=== PATIENT | male | born 1955 | race Caucasian/White ===

== ENCOUNTER → 2016-10-01 | Outpatient (CLI) | payer OTHER ==
[~2016-10-01] MED LIST: GADOBUTROL 10 ML VIAL IVP ONE
== END ==
LOC: FIMAGING 07:06
PROVIDERS: ATTEND Internal Medicine Hematology & Oncology
DX: Z08 Encounter for follow-up examination after completed treatment for malignant neoplasm (principal)
CPT/HCPCS: A9585

== ENCOUNTER 2017-03-10 07:40 | Emergency (ER) | payer OTHER ==
[2017-03-10 07:48] VITALS: O2SAT 96
--- NOTE | 2017-03-10 08:15 | EDPHY ---
H & P Time Seen by Provider: 03/10/17 07:49 HPI/ROS: CHIEF COMPLAINT: Left foot injury HISTORY OF PRESENT ILLNESS: Patient has been having pain in his left foot for 2 or 3 weeks which is worse with walking and so he has been on the exercise bike instead. Today he was walking on the treadmill at 2 miles an hour when twisted his foot and felt a pop and became suddenly more painful. He can walk on it if he uses his heel but walking on the forefoot is painful. REVIEW OF SYSTEMS: No leg or knee or ankle injury. No laceration. PAST MEDICAL HISTORY: Includes Parkinson's, melanoma, cholecystectomy. Social history: here with spouse General Appearance: Alert and conversant, cooperative. Pain minimal at rest. Nontender in the calf or lateral or medial malleolus. Achilles is nontender. Skin normal over the foot. Tender primarily over the distal part of the arch and the instep on the distal 3rd of the forefoot. Toes nontender and 5th metatarsal nontender. Normal dorsalis pedis pulse and motor and sensory. Emergency Department course/MDM: No evidence for Achilles rupture or ankle fracture. Plan for foot x-ray, outpatient orthopedic referral. 829: Results explain, patient has an orthopedic boot, warned he needs mandatory specialist follow-up for evaluation; the now tells me he has been having intermittent pain and swelling in that foot for over a year. Smoking Status: Never smoked Constitutional: Initial Vital Signs Temperature (C) 36.6 C 03/10/17 07:45 Heart Rate 71 03/10/17 07:45 Respiratory Rate 16 03/10/17 07:45 Blood Pressure 118/85 H 03/10/17 07:45 O2 Sat (%) 96 03/10/17 07:45 O2 Delivery Mode Room Air Allergies/Adverse Reactions: No Known Allergies Allergy (Verified 03/10/17 07:43) Home Medications: Medication Instructions Recorded Cyclobenzaprine HCl [Amrix] 15 mg PO HS 09/04/13 Ferrous Gluconate [Ferrous 325 mg PO BIDMEAL 09/04/13 Gluconate 325 MG] Fexofenadine HCl [Nilda Allergy] 180 mg PO DAILY 09/04/13 LORazepam [Ativan (*)] 1 mg PO HS 09/04/13 Lisinopril/Hydrochlorothiazide 1 each PO DAILY 09/04/13 [Lisinopril-Hctz 10-12.5 mg Tab] Multivitamins [Multivitamin (*)] 1 each PO DAILY 09/04/13 Propafenone HCl Sr [Rythmol Sr 225 mg PO Q12 09/04/13 225mg (*)] Cholecalciferol (Vitamin D3) 2,000 unit PO DAILY 10/09/14 [Vitamin D3] Herbals/Supplements -Info Only 1 ea PO DAILY 10/09/14 [place]-3 Fatty Acids [Fish Oil 1000 1,000 mg PO DAILY 10/09/14 mg (*)] rOPINIRole HCL [Requip XL 6mg] 6 mg PO HS 10/17/14 Stalevo 100 Tablet 07/31/15 MDM/Departure - MDM Imaging Results: Imaging Impressions Foot X-Ray 03/10/17 07:55 Impression: Nothing acute identified. Negative lateral foot. - Depart Disposition: Home, Routine, Self-Care Clinical Impression: Sprain of foot, left Qualifiers: Encounter type: initial encounter Qualified Code(s): S93.602A - Unspecified sprain of left foot, initial encounter Condition: Good Instructions: Foot Sprain (ED) Additional Instructions: You likely have a sprain acutely, although a stress fracture in your foot cannot be completely excluded. Please follow-up with orthopedic referral physician Dr. Whittaker or department administrator Dr. Hawkins within the 1-2 weeks for further evaluation. Activity as tolerated. Referrals: Richelle Fish MD [Primary Care Provider] - As per Instructions Neo Whittaker MD [Medical Doctor] - As per Instructions Pavel Hawkins DPM [Doctor of Podiatric Medicine] - As per Instructions
[2017-03-10 09:09] VITALS: BP 117/97; PULSE 67; RESP 18; TEMP 97.3
== END 2017-03-10 09:25 | disposition home or self-care (01) ==
DX: S93.602A Unspecified sprain of left foot, initial encounter (principal); X58.XXXA Exposure to other specified factors, initial encounter; Y99.8 Other external cause status; Y93.A1 Activity, exercise machines primarily for cardiorespiratory conditioning

== ENCOUNTER → 2017-09-14 | Outpatient (CLI) | payer OTHER | LOC: FIMAGING 15:48 | PROVIDERS: ATTEND Nurse Practitioner | DX: M51.37 Other intervertebral disc degeneration, lumbosacral region (principal); M51.36 Other intervertebral disc degeneration, lumbar region; M46.97 Unspecified inflammatory spondylopathy, lumbosacral region ==

== ENCOUNTER 2017-09-29 08:42 | Inpatient (IN) | payer OTHER ==
--- NOTE | 2017-09-29 06:39 | PDHPUP ---
History & Physical Update H&P update statement: This history and physical update is based on an assessment of the patient which was completed after admission or registration (within 24 hours), but prior to the surgery/procedure. H&P update: H&P reviewed & patient examined, no change in patient's condition since H&P completed
[2017-09-29] MEDS ORDERED: BUPIVACAINE 0.25% 30 ML SDV ONE (08:54)
[2017-09-29] MEDS ORDERED: THROMBIN (BOVINE) 20,000 UNIT VIAL TP ONE (08:54)
[2017-09-29] MEDS ORDERED: BACITRACIN 50,000 UNITS/10 ML SYR IRR ONE (08:55)
[2017-09-29] MEDS ORDERED: ACETAMINOPHEN 500 MG TAB PO ONE (08:55)
[2017-09-29] MEDS ORDERED: GABAPENTIN 300 MG CAP PO ONE (08:55)
[2017-09-29] MEDS ORDERED: ceFAZolin 2 GM/SWFI 2 GM/20 ML SYR IVP ONE (08:55)
[2017-09-29] MEDS ORDERED: CHLORHEXIDINE GLUC HIBICLENS 118 ML BTL TP ONE (08:55)
[2017-09-29] MEDS ORDERED: LR 1,000 ML IV ONE (08:56)
--- NOTE | 2017-09-29 09:42 | PDANEPAE ---
ANE History of Present Illness L4/5,L5/S1 TLIF for spinal stenosis ANE Past Medical History - Cardiovascular History Hx Hypertension: Yes Hx Arrhythmias: Yes Hx Chest Pain: No Hx Coronary Artery / Peripheral Vascular Disease: No Hx CHF / Valvular Disease: No Hx Palpitations: No Cardiovascular History Comment: ATRIAL FIBRILLATION. HHT - Pulmonary History Hx COPD: No Hx Asthma/Reactive Airway Disease: No Hx Recent Upper Respiratory Infection: Yes Hx Oxygen in Use at Home: Yes O2 in Use at Home (L/minute): 1L Hx Sleep Apnea: Yes Sleep Apnea Screening Result - Last Documented: Positive Pulmonary History Comment: DIEUDONNE no c-pap. EXERCISE INDUCED ASTHMA - Neurologic History Hx Cerebrovascular Accident: No Hx Seizures: No Hx Dementia: No Neurologic History Comment: PARKINSON DISEASE DX 2011 - Endocrine History Hx Diabetes: No Hypothyroid: No Hyperthyroid: No Obesity: mild - Renal History Hx Renal Disorders: Yes Renal History Comment: left Nephrectomy for renal mass - Liver History Hx Hepatic Disorders: No - Neurological & Psychiatric Hx Hx Neurological and Psychiatric Disorders: Yes Neurological / Psychiatric History Comment: ANXIETY RELATED TO PARKINSON - Cancer History Hx Cancer: Yes Cancer History Comment: OCULAR Melanoma - Congenital Disorder History Hx Congenital Disorders: Yes Congenital History Comment: congenital cataract and glaucoma L eye - GI History GERD: mild Hx Gastrointestinal Disorders: No Gastrointestinal History Comment: BOWELS SLOW NOT REGULAR - Other Health History Other Health History: ANEMIA due to HHT. nose bleeds - Chronic Pain History Chronic Pain: No - Surgical History Prior Surgeries: L nephrectomy. ENDOSCOPY WITH INJECTION 08/2013. NASAL RECONSTRUCTION YOUNG PROCEDURE 12/2012. LT EYE ENUCLEATION 08/2013. LT CATARACT 1994. LUMA 2008. T&A. NASAL ABLATIONS ANE Review of Systems Review of Systems: - Exercise capacity METS (RN): 4 METS ANE Patient History - Allergies Allergies/Adverse Reactions: No Known Allergies Allergy (Verified 03/10/17 07:43) - Home Medications Home medications: home medication list seen and reviewed Home Medications: Fexofenadine HCl [Nilda Allergy] 180 mg PO DAILY@72909/04/13 [Last Taken 07:30] Lisinopril/Hydrochlorothiazide [Lisinopril-Hctz 10-12.5 mg Tab] 1 each PO DAILY@ 72909/04/13 [Last Taken 09/28/17 07:30] Multivitamins [Multivitamin (*)] 1 each PO DAILY@72909/04/13 [Last Taken 09/22] Propafenone HCl Sr [Rythmol Sr 225mg (*)] 225 mg PO BID@729,222909/04/13 [ Last Taken 09/28/17 07:30] Cholecalciferol (Vitamin D3) [Vitamin D3] 2,000 unit PO DAILY@72910/09/14 [ Last Taken 10/12/14] Herbals/Supplements -Info Only 1 ea PO DAILY 10/09/14 [Last Taken 09/22/17] [place]-3 Fatty Acids [Fish Oil 1000 mg (*)] 1,000 mg PO DAILY@72910/09/14 [ Last Taken 09/22/17] Carbidopa/Levodopa/Entacapone [Stalevo 100 Tablet] 1 each PO QID@729,,, 222907/31/15 [Last Taken 09/29/17 07:30] Cyclobenzaprine [Flexeril 10 MG (*)] 10 mg PO TID@729,,09/17/17 [Last Taken 09/29/17 07:30] Ferrous Sulfate [Slow Fe 140 MG (*)] 140 mg PO DAILY@72909/17/17 [Last Taken 09/22/17] clonazePAM [Klonopin (*)] 0.5 mg PO DAILY@102909/17/17 [Last Taken 09/28/17 22: 30] rOPINIRole HCL [Requip Xl] 2 mg PO DAILY@72909/17/17 [Last Taken 09/28/17 22: 30] rOPINIRole HCL [Requip Xl] 8 mg PO DAILY@72909/17/17 [Last Taken 09/28/17 22: 30] - NPO status NPO Status: no food or drink >8 hours NPO Since - Liquids (Date): 09/28/17 NPO Since - Liquids (Time): 22:00 NPO Since - Solids (Date): 09/28/17 NPO Since - Solids (Time): 21:00 - Anes Hx Anes Hx: no prior problems - Smoking Hx Smoking Status: Never smoked Marijuana use: Yes - Family Anes Hx Family Anes Hx: none Family Hx Anesthesia Complications: NEG ANE Labs/Vital Signs - Vital Signs Blood Pressure: 140/97 Heart Rate: 69 Respiratory Rate: 18 O2 Sat (%): 93 Height: 187.33 cm Weight: 102.965 kg ANE Physical Exam - Airway Neck exam: decreased ROM Mallampati Score: Class 2 Mouth exam: normal dental/mouth exam - Pulmonary Pulmonary: no respiratory distress, no rales or rhonchi - Cardiovascular Cardiovascular: regular rate and rhythym, no murmur, rub, or gallop - ASA Status ASA Status: III ANE Anesthesia Plan Anesthesia Plan: general endotracheal anesthesia Lines/Monitors: arterial line Total IV Anesthesia: Yes
[2017-09-29] MEDS ORDERED: MIDAZOLAM 2 MG/2 ML VIAL IVP ONE (10:44)
[2017-09-29] MEDS ORDERED: METHOCARBAMOL 750 MG TAB PO PRN (10:45)
[2017-09-29] MEDS ORDERED: HYDROCODONE/APAP 5/325 TAB PO PRN ×2 (10:45→16:21)
[2017-09-29] MEDS ORDERED: NALOXONE HCL 0.4 MG/ML INJ IVP PRN ×2 (10:45→16:21)
[2017-09-29] MEDS ORDERED: BISACODYL 10 MG SUPP PR PRN (10:45)
[2017-09-29] MEDS ORDERED: diphenhydrAMINE 25 MG CAP PO PRN (10:45)
[2017-09-29] MEDS ORDERED: MIDAZOLAM 2 MG/2 ML VIAL ONE (10:45)
[2017-09-29] MEDS ORDERED: ONDANSETRON 4 MG/2 ML VIAL IVP PRN ×2 (10:45→16:21)
[2017-09-29] MEDS ORDERED: POLYETHYLENE GLYCOL 3350 17 GM PKT PO PRN (10:45)
[2017-09-29] MEDS ORDERED: MAGNESIUM HYDROXIDE 30 ML UDCUP PO PRN (10:45)
[2017-09-29] MEDS ORDERED: LACTULOSE 20 GM/30 ML UDCUP PO PRN (10:45)
[2017-09-29] MEDS ORDERED: HYDROmorphONE/DILAUDID 6 MG/30 ML PCA IV PRN (10:45)
[2017-09-29] MEDS ORDERED: ONDANSETRON DISINTEGRATING 4 MG TAB PO PRN (10:45)
[2017-09-29] MEDS ORDERED: NS W/ 20 KCl/L 1,000 ML IV SCH (10:45)
[2017-09-29] MEDS ORDERED: HYDROmorphONE/DILAUDID 1 MG/ML INJ IVP PRN ×2 (10:45→16:21)
[2017-09-29] MEDS ORDERED: PROPOFOL/EMULSION 500 MG/50 ML BOTTLE IV ONE ×3 (10:52→13:18)
[2017-09-29] MEDS ORDERED: fentaNYL 250 MCG/5 ML INJ ONE (10:52)
[2017-09-29] MEDS ORDERED: ROCURONIUM 50 MG/5 ML VIAL ONE (10:52)
[2017-09-29] MEDS ORDERED: GLYCOPYRROLATE 0.2 MG/1 ML VIAL ONE (10:52)
[2017-09-29] MEDS ORDERED: DEXAMETHASONE 4 MG/ML VIAL ONE ×2 (10:52)
[2017-09-29] MEDS ORDERED: LIDOCAINE 2% 5 ML SDV ONE (10:53)
[2017-09-29] MEDS ORDERED: ONDANSETRON 4 MG/2 ML VIAL ONE (10:53)
[2017-09-29] MEDS ORDERED: PETROLAT,WHT/MIN OIL/SOD CHL 3.5 GM OPHT.OINT ONE (11:00)
[2017-09-29] MEDS ORDERED: PHENYLEPHRINE HCL 100 MCG/ML SYR ONE (12:05)
[2017-09-29] MEDS ORDERED: fentaNYL 100 MCG/2 ML INJ ONE ×5 (12:18→16:26)
[2017-09-29] MEDS ORDERED: ceFAZolin 2 GM/DEXTROSE 100 ML IV SCH (14:00)
[2017-09-29] MEDS ORDERED: ceFAZolin 1 GM VIAL ONE (14:44)
[2017-09-29] MEDS ORDERED: PROPOFOL 200 MG/20 ML VIAL ONE ×2 (14:51)
[2017-09-29] MEDS ORDERED: fentaNYL 100 MCG/2 ML INJ IVP PRN (16:21)
[2017-09-29] MEDS ORDERED: DIAZEPAM 5 MG/ML 1 ML SYR IVP PRN (16:21)
--- NOTE | 2017-09-29 16:21 | SOAPPROG ---
SOAP Progress Note Assessment/Plan: Post Op Visit S: Awake and alert. Pt with expected lower back pain O: AFVSS/PERRLA/EOMI no droop CN 2-12 grossly intact +lt touch 5/5 BUE/BLE = except left DF at 4-/5, left EHL at 3+/5 +cms/nv intact x 4 A/P: 62 yo male that is s/p TLIF L4-S1 for BLE pain -orders in place -call with any questions or concerns -pt understands and agrees -pt seen by Dr Kapoor as well 09/29/17 16:18 Objective: Vital Signs Temp Pulse Resp BP Pulse Ox 36.4 C 69 18 140/97 H 93 09/29/17 09:02 09/29/17 10:37 09/29/17 10:37 09/29/17 10:37 09/29/17 10:37 ICD10 Worksheet Patient Problems: Problems Problem Status Onset Arthrodesis status Acute Lumbar radicular pain Acute Lumbar stenosis Acute Anemia Acute GI bleed Acute HHT (hereditary hemorrhagic telangiectasia) Acute Renal cyst, acquired, left Acute Renal mass Acute Renal oncocytoma of left kidney Acute - ICD10 Problem Qualifiers (1) Lumbar stenosis (2) Lumbar radicular pain (3) Arthrodesis status
--- NOTE | 2017-09-29 17:36 | GOP ---
[f rep st] OPERATIVE REPORT DATE OF OPERATION: 09/29/2017 SURGEON: Sandoval Kapoor MD NEUROSURGEON: Sandoval Kapoor MD. [facility] NURSE: Neo Munson PA-C. PREOPERATIVE DIAGNOSIS: Chronic left footdrop, bilateral lumbosacral radiculopathy, severe left fora giuseppe stenosis L5-S1, acute L4-5 disk herniation combined with right foraminal stenosis L4-5 lumbar d egenerative disk disease. POSTOPERATIVE DIAGNOSIS: Chronic left footdrop, bilateral lumbosacral radiculopathy, severe left for aminal stenosis L5-S1, acute L4-5 disk herniation combined with right foraminal stenosis L4-5 lumbar degenerative disk disease. PROCEDURE PERFORMED: Posterior-lateral intervertebral arthrodesis L4-5, L5-S1, with a left L5-S1 com plete facetectomy and radical decompression of the left neural foramen, L5-S1 with a right L4-5 radic al decompression of the exiting L4 nerve root and microdiskectomy (70779 and 94853), posterior segmen terry instrumentation L4, L5, S1 (65277), same incision bone graft harvest, microscope, spinal stereota xy, placement of expandable biomechanical intervertebral device L4-5, L5-S1 (73730 x2). FINDINGS: ESTIMATED BLOOD LOSS: 350 cc. INDICATIONS: The patient is a 61-year-old gentleman with a number of medical problems including Park inson disease, a history of an ocular melanoma as well as HHT and previous hemorrhagic complications of HHT, who has a chronic left footdrop and has had footdrop on the left for several years, but did h ave pain radiating into the left leg and particularly down in the left calf and the anterior lateral calf, but presented with acute right L5 pattern of pain due to a disk herniation on the right at L4-5 with an inferior disk extrusion. They were causing compression of the traversing L5 root. There wa s also severe right foraminal stenosis at L4-5. Given the chronic left-sided footdrop as well as rad iating pain in the left leg, I looked for a source of this and did not feel that the L4-5 level could account for it, but he had really completely obliterated neural foramen on the left at L5-S1, due to facet arthropathy at that level and spondylosis with a degenerative disk at L5-S1. I suggested justina mahesh of the left facet and instrumented fusion there. Given the longevity of the problem on the left, it was unclear to me whether or not this would alleviate the footdrop, but it seemed like a reasonab le thing to do to try to get both pain relief and the resolution of the footdrop, although I was not very optimistic we would achieve resolution of the footdrop itself. I thought it could help with his pain. His acute right-sided pain on was due to an inferior disk extrusion at L4-5, but he also had right foraminal stenosis and I was more optimistic about taking care of this more acute right-sided p ain with surgery. Due to the prior history of melanoma, we discussed with him the risk of bone morph ogenic protein in that context, although is not felt to be onychogenic at this time. He understood t hat there have been prior concerns about this. We did discuss the risk of CSF leak, nerve injury, ps eudoarthrosis, adjacent segment disease, and possible need for future spine surgery. He knew there w as a chance surgery would fail to alleviate his pain. He knew there was a risk of a CSF leak and he knew that it would take several months to recover from the surgery. He understood all this, but he d id want to try to proceed to see if it would help with his bilateral symptoms. He knew there was a g reater risk of hemorrhagic complications, but I did not think that his overall risk was really that m uch different. I thought it was something we could easily manage with meticulous coagulation through out surgery. DESCRIPTION OF PROCEDURE: Patient was taken to the operating room, placed in supine position. Gener al anesthesia was begun. He was flipped prone onto the Perry table. Care was taken to pad all poi nts of contact. His back was sterilely prepped and draped in usual fashion. A localizing x-ray was taken. We made a midline incision above the L4-5 and L5-S1 interspace. The subcutaneous tissue was dissected using Bovie cautery down through the fascia and a subperiosteal dissection was made down th e inferior lamina of L3. The complete lamina of L4-5 and S1 was exposed. He was a rather large nitin vidual. The exposure was large. We actually increased the length of our incision to give us better visualization to help achieve meticulous hemostasis. There was more bleeding during the dissection t levin would be normal, but overall blood loss at the end of the case was about typical for a two-level fusion. Self-retaining retractors placed. A localizing x-ray was taken. We denuded and removed muc h of the bilateral L4-5 and L5-S1 facet joints to create arthrodesis and decorticated the transverse processes at L4, L5, S1. We tested SteNutricate reference frame, performed an O-arm spin. Using frameles s Stealth stereotaxy, placed bicortical screws at S1, screws at L5 and screws at L4 and they all stim ulated at acceptable levels. The S1 screws were indeed bicortical and they were medially angled. Th ey did not come in contact with the L5 nerve root on the ventral surface of the sacrum. InterStim nu mbers were acceptable. We placed 70 mm rods down between L4-5 and 1, distracted between each of thes e and got in significant increase in disk height between 4 5 and 1, opening the neural foramen indire ctly in the process. We then harvested the complete L5 spinous process, the inferior L4 spinous proc ess. We drilled a left L5-S1 hemilaminectomy and a right L4-5 hemilaminectomy, harvested this bone f or autologous grafting purposes and under the microscope, we decompressed the left lateral recess ini tially at L5-S1 and then the neural foramen. The superior articular process of the sacrum was really rather pronounced and quite enlarged on the left at L5-S1 and we completely the SAP from i ts attachment to the pedicle. We delivered a huge chunk of bone off the L5 nerve root in the neural foramen. There was remarkable nerve compression by this hypertrophic superior articular process and it was removed and this completely freed and released the 5 root. We decompressed L5 root in the are a of what would normally be the isthmus of L5 at the pars interarticularis and decompressed that flus h with the pedicle. The 5 root was now completely free and clear passing into its neural foramen. T he left S1 nerve root was identified, mobilized, and we were able to sweep this nerve medially, but b efore continuing we went ahead and went up to the right-hand side where we decompressed the right-levin d side at L4-5, removing the ligamentum flavum and the L4-5 facet joint. There was significant sherrill inal stenosis on the right at L4-5 as well. The exiting L4 nerve root was identified and completely decompressed from the L4 pedicle, all the way into the neural foramen. We then mobilized the reji ing L5 nerve root and indeed underneath the L5 nerve root in an inferiorly extruded position was a fr ee fragment disk herniation that was locked underneath the posterior longitudinal ligament. We incis ed this and removed much of this disk material. This completely decompressed the right-sided L4-5. We then incised the L4-5 disk and removed the disk and the cartilaginous endplates. We roughened the subchondral bone to create arthrodesis at that level. We then went to L5-S1 where we removed the di sk and the cartilaginous endplates and roughened the subchondral bone to create arthrodesis there. W e packed bone morphogenic protein and bone autograft into both the disk spaces, and this was followed by a 9 x 28 mm device at L4-5 and a 7 x 28 mm device at L5-S1. An excellent fit was obtained and un marj fluoroscopic guidance they were expanded. A final x-ray was taken, both AP and lateral, and we w ere happy with the position of the devices. We irrigated with antibiotic saline solution, decorticat ed the remaining posterolateral bone bilaterally at L4-5, 5-1, placed the remaining bone morphogenic protein, 2 mg were used in the disk spaces and 1 mg on each side posterior laterally from L4-S1, foll owed by bone autograft which was placed posterolaterally bilaterally. All the screws had been torque d according to company specification. A subfascial drain was placed. We then closed the incision in multiple layers using Vicryl sutures. Steri-Strips were applied to skin. The patient was reversed from anesthesia, extubated, and transferred to recovery room in stable condition. COMPLICATIONS: None. INSTRUMENTATION USED: dVisittronic 5.5 mm Solara with a 70 mm titanium oliva bilaterally. We used a 9 x 28 mm Elevate device at L4-5 and a 7 x 28 mm device at L5-S1. /[id number]/MODL
[2017-09-29] MEDS: ACETAMINOPHEN 500 MG TAB PO SCH ×2 (19:11→22:49)
[2017-09-29] MEDS: GABAPENTIN 300 MG CAP PO SCH ×2 (19:13→22:52)
[2017-09-29] MEDS: LEVODOPA PO SCH (19:14)
[2017-09-29] MEDS: CYCLOBENZAPRINE 10 MG TAB PO SCH (19:14)
[2017-09-29] MEDS: CARBIDOPA PO SCH (19:14)
[2017-09-29] MEDS: ENTACAPONE PO SCH (19:14)
[2017-09-29] MEDS ORDERED: HYDROmorphone HCL/NS 0.5 MG/ML SYR IVP PRN (20:04)
[2017-09-29] MEDS: FAMOTIDINE 20 MG TAB PO SCH (20:32)
[2017-09-29] MEDS: SENNOSIDES/DOCUSATE SODIUM TAB PO SCH (20:32)
[2017-09-29] MEDS: ceFAZolin 2 GM/SWFI 2 GM/20 ML SYR IVP SCH (20:33)
[2017-09-29] MEDS ORDERED: CYCLOBENZAPRINE 10 MG TAB PO ONE (22:45)
[2017-09-29] MEDS: PROPAFENONE HCL SR 225 MG CAP PO SCH (22:52)
[2017-09-30] MEDS: clonazePAM 0.5 MG TAB PO SCH ×2 (00:11→22:34)
[2017-09-30] MEDS: CARBIDOPA/LEVODOPA 25 MG/100 MG TAB PO SCH ×2 (01:34→09:50)
[2017-09-30] MEDS: ENTACAPONE 200 MG TAB PO SCH ×2 (01:35→09:51)
[2017-09-30] MEDS: LEVODOPA PO SCH ×5 (02:39→22:33)
[2017-09-30] MEDS: CARBIDOPA PO SCH ×5 (02:39→22:33)
[2017-09-30] MEDS: ENTACAPONE PO SCH ×5 (02:39→22:33)
[2017-09-30] MEDS: oxyCODONE IR 5 MG TAB PO PRN ×4 (04:59→22:38)
[2017-09-30 05:22] LABS: PLATELET COUNT 220 10^3/uL (150-400)
[2017-09-30] MEDS: GABAPENTIN 300 MG CAP PO SCH ×3 (05:59→22:33)
[2017-09-30] MEDS: ACETAMINOPHEN 500 MG TAB PO SCH ×3 (05:59→21:24)
[2017-09-30] MEDS ORDERED: ceFAZolin 2 GM/SWFI 2 GM/20 ML SYR IVP SCH (06:00)
[2017-09-30] MEDS: ceFAZolin 2 GM/SWFI 2 GM/20 ML SYR IVP SCH (06:57)
[2017-09-30] MEDS ORDERED: ROPINIROLE HCL 8 MG PO SCH ×2 (07:30→22:30)
[2017-09-30] MEDS ORDERED: Ropinirole Hcl [Requip Xl] 2 MG PO SCH ×2 (07:30→22:30)
[2017-09-30] MEDS: CETIRIZINE 10 MG TAB PO SCH (07:58)
[2017-09-30] MEDS: CYCLOBENZAPRINE 10 MG TAB PO SCH ×3 (07:59→16:47)
[2017-09-30] MEDS: FERROUS SULFATE 140 MG TAB.ER PO SCH (08:00)
[2017-09-30] MEDS: PROPAFENONE HCL SR 225 MG CAP PO SCH ×2 (08:01→22:34)
[2017-09-30] MEDS: CHOLECALCIFEROL VIT D3 2,000 UNITS TAB/CAP PO SCH (08:01)
[2017-09-30] MEDS: SENNOSIDES/DOCUSATE SODIUM TAB PO SCH ×2 (08:02→21:24)
[2017-09-30] MEDS: FAMOTIDINE 20 MG TAB PO SCH ×2 (08:06→21:24)
[2017-09-30] MEDS: LISINOPRIL/HCTZ 10/12.5 MG 1 EA TAB PO SCH (08:07)
--- NOTE | 2017-09-30 08:09 | NEUSURGPN ---
Assessment/Plan: Assessment: 62 yo male that is s/p TLIF L4-S1 for BLE pain POD #1 Plan: -s/p TLIF L4-S1: pt states that he is better with expected lower back pain-legs are better -PT/OT pending -strength is better overall -post op xrays pending -brace when out of bed - to bring in medications as the pharmacy did not have one of his medications for parkinsons -orders in place -call with any questions or concerns -pt understands and agrees -pt seen by Dr Kapoor as well Subjective: Awake and alert. NAD. Eating/drinking and voiding. No f/c/n/v/d. No de la torre/neck/ chest/abd or gu complaints. Objective: AFVSS/PERRLA/EOMI no droop CN 2-12 grossly intact +lt touch 5/5 BUE/BLE = except left EHL at 5-/5 +cms/nv intact x 4 Neuro Check Frequency: per routine Urinary Catheter in Place: Yes Urinary Catheter Indication: Other (Use Comment) (to be removed this am) Catheter Insertion Date: 09/29/17 - Physician Discussed Patient with : Antwon Patient Seen by : Antwon Neurosurgery Physical Exam - Vitals, I&O, Labs I and O 09/29/17 09/30/17 10/01/17 05:59 05:59 05:59 Intake Total 1370 Output Total 2225 Balance -855 Weight 102.965 kg Intake: Oral (ml) 720 IV Intake (ml) 650 Output: Urine (ml) 1500 Catheter 1500 Estimated Blood Loss (ml) 350 PAYAM Drain Output (ml) 375 #1 Left Posterior Back 375 Perry Rene Other: Intake Quantity Yes Sufficient Number of Voids Catheter 1 Vital Signs Temp Pulse Resp BP Pulse Ox 36.9 C 77 16 119/72 95 09/30/17 00:35 09/30/17 00:35 09/30/17 00:35 09/30/17 00:35 09/30/17 00:35 Laboratory Results 09/30/17 04:44 09/30/17 04:44 ICD10 Worksheet Patient Problems: Problems Problem Status Onset Arthrodesis status Acute Lumbar radicular pain Acute Lumbar stenosis Acute Anemia Acute GI bleed Acute HHT (hereditary hemorrhagic telangiectasia) Acute Renal cyst, acquired, left Acute Renal mass Acute Renal oncocytoma of left kidney Acute - ICD10 Problem Qualifiers (1) Lumbar stenosis (2) Lumbar radicular pain (3) Arthrodesis status
--- NOTE | 2017-09-30 09:45 | ASMTCMCOM ---
CM Note CM Note Notes: 09/30/2017 Case Management Note Met w/pt. Pt is to [facility] ([phone]). PT is recommending home. There are no case management d/c needs identified d/t pt age, family support and employment status in addition to PT recommendations. Pt plans for to assist with ADL's if needed. Case Management d/c poc: Home independent with follow up as directed. Case Management available if needs change. Date Signed: 09/30/2017 09:44 AM Electronically Signed By:Richelle Bailon RN
[2017-09-30] MEDS ORDERED: ENTACAPONE 200 MG TAB PO SCH (17:00)
[2017-09-30] MEDS ORDERED: CARBIDOPA/LEVODOPA 25 MG/100 MG TAB PO SCH (17:00)
--- NOTE | 2017-09-30 21:44 | POSTANESTH ---
Post Anesthetic Evaluation Cardiovascular Status: Normal, Stable Respiratory Status: Normal, Stable Level of Consciousness/Mental Status: Can Participate in Eval Pain Control: Adequate, Prn Tx Ordered Nausea/Vomiting Control: Adequate, Prn Tx Ordered Complications Possibly Related to Anesthesia: None Noted
[2017-10-01] MEDS: GABAPENTIN 300 MG CAP PO SCH ×2 (05:38→14:38)
[2017-10-01] MEDS: ACETAMINOPHEN 500 MG TAB PO SCH ×2 (05:38→14:37)
[2017-10-01 07:24] VITALS: BP 133/89; PULSE 72; RESP 16; TEMP 97.6; O2SAT 93
[2017-10-01] MEDS ORDERED: Ropinirole Hcl [Requip Xl] 2 MG PO SCH (07:30)
--- NOTE | 2017-10-01 07:33 | NEUSURGPN ---
Date of Surgery: 09/29/17 Post Op Day: 2 Assessment/Plan: Assessment: 62 yo male that is s/p TLIF L4-S1 for BLE pain POD #2 Plan: -s/p TLIF L4-S1: pt states that he is better with expected lower back pain-legs are better -PT/OT-CPM -strength is better overall -he is happy with his surgery -post op xrays reviewed and look good -brace when out of bed -orders in place -call with any questions or concerns -pt understands and agrees -pt seen by Dr Kapoor as well -plan for dc later today if meets criteria -PAYAM to be removed this afternoon Subjective: Awake and alert. NAD. Eating/drinking and voiding. No de la torre/neck/chest/abd or gu complaints. No f/c/n/v/d. Objective: AFVSS/PERRLA/EOMI no droop CN 2-12 grossly intact +lt touch 5/5 BUE/BLE = except left EHL at 5-/5 +cms/nv intact x 4 CDI Neuro Check Frequency: per routine Urinary Catheter in Place: No Catheter Insertion Date: 09/29/17 - Physician Discussed Patient with : Antwon Patient Seen by : Antwon Neurosurgery Physical Exam - Vitals, I&O, Labs I and O 09/30/1718 10/02/17 05:59 05:59 05:59 Intake Total 1370 2350 Output Total 2225 3415 Balance -855 -1065 Weight 102.965 kg Intake: Oral (ml) 720 2350 IV Intake (ml) 650 Output: Urine (ml) 1500 3000 Catheter 1500 1500 Urinal 1500 Estimated Blood Loss (ml) 350 PAYAM Drain Output (ml) 375 415 #1 Left Posterior Back 375 415 Perry Rene Other: Intake Quantity Yes Yes Sufficient Number of Voids Catheter 1 Toilet 1 Vital Signs Temp Pulse Resp BP Pulse Ox 36.4 C 72 16 133/89 H 93 10/01/17 07:23 10/01/17 07:23 10/01/17 07:23 10/01/17 07:23 10/01/17 07:23 Laboratory Results 09/30/17 04:44 10/01/17 04:37 ICD10 Worksheet Patient Problems: Problems Problem Status Onset Arthrodesis status Acute Lumbar radicular pain Acute Lumbar stenosis Acute Anemia Acute GI bleed Acute HHT (hereditary hemorrhagic telangiectasia) Acute Renal cyst, acquired, left Acute Renal mass Acute Renal oncocytoma of left kidney Acute - ICD10 Problem Qualifiers (1) Lumbar stenosis (2) Lumbar radicular pain (3) Arthrodesis status
--- NOTE | 2017-10-01 07:44 | PDIAF ---
- Diagnosis Diagnosis: s/p lumbar fusion Code Status: Full Code - Medication Management Discharge Medications: Medications to Continue on Transfer Fexofenadine HCl [Nilda Allergy] 180 mg PO DAILY@72909/04/13 [Last Taken 07:30] Lisinopril/Hydrochlorothiazide [Lisinopril-Hctz 10-12.5 mg Tab] 1 each PO DAILY@ 72909/04/13 [Last Taken 09/28/17 07:30] Multivitamins [Multivitamin (*)] 1 each PO DAILY@72909/04/13 [Last Taken 09/22] Propafenone HCl Sr [Rythmol Sr 225mg (*)] 225 mg PO BID@729,222909/04/13 [ Last Taken 09/28/17 07:30] Cholecalciferol (Vitamin D3) [Vitamin D3] 2,000 unit PO DAILY@72910/09/14 [ Last Taken 10/12/14] Herbals/Supplements -Info Only 1 ea PO DAILY 10/09/14 [Last Taken 09/22/17] [place]-3 Fatty Acids [Fish Oil 1000 mg (*)] 1,000 mg PO DAILY@72910/09/14 [ Last Taken 09/22/17] Carbidopa/Levodopa/Entacapone [Stalevo 100 Tablet] 1 each PO QID@729,,, 222907/31/15 [Last Taken 09/29/17 07:30] Cyclobenzaprine [Flexeril 10 MG (*)] 10 mg PO TID@729,,09/17/17 [Last Taken 09/29/17 07:30] Ferrous Sulfate [Slow Fe 140 MG (*)] 140 mg PO DAILY@72909/17/17 [Last Taken 09/22/17] clonazePAM [Klonopin (*)] 0.5 mg PO DAILY@102909/17/17 [Last Taken 09/28/17 22: 30] rOPINIRole HCL [Requip Xl] 2 mg PO DAILY@222909/17/17 [Last Taken 09/28/17 22: 30] rOPINIRole HCL [Requip Xl] 8 mg PO DAILY@222909/17/17 [Last Taken 09/28/17 22: 30] Acetaminophen [Tylenol ES 500 mg (*)] 1,000 mg PO Q8HRS tab 10/01/17 [Last Taken Unknown] Gabapentin [Neurontin 300 MG (*)] 300 mg PO Q8HRS #90 cap 10/01/17 [Last Taken Unknown] Methocarbamol [Robaxin 750 mg (*)] 750 mg PO QID PRN #60 tab 10/01/17 [Last Taken Unknown] Sennosides/Docusate Sodium [Senokot-S] 1 - 2 tab PO BID #30 tab 10/01/17 [Last Taken Unknown] oxyCODONE IR [Oxycodone Ir (*)] 5 - 10 mg PO Q4HRS PRN #60 tab 10/01/17 [Last Taken Unknown] Clinical Quality Assurance Specialist Antibiotics: none Discharge Medications: Refer to the Discharge Home Medication list for PRN reason. PICC Care - Routine: N/A - Orders Services needed: Physical Therapy, Occupational Therapy Isolation Type: None Oxygen: to keep O2 sat above 90% Diet Recommendation: no restrictions on diet Diet Texture: Regular Texture Diet Rand: Not applicable - Follow Up Care Current Providers and Referrals: Richelle Fish MD [Primary Care Provider] - Lawrence Kapoor MD [Medical Doctor] - (follow up in 2-3 weeks)
[2017-10-01] MEDS: LISINOPRIL/HCTZ 10/12.5 MG 1 EA TAB PO SCH (08:24)
[2017-10-01] MEDS: FAMOTIDINE 20 MG TAB PO SCH (08:24)
[2017-10-01] MEDS: FERROUS SULFATE 140 MG TAB.ER PO SCH (08:25)
[2017-10-01] MEDS: PROPAFENONE HCL SR 225 MG CAP PO SCH (08:25)
[2017-10-01] MEDS: CYCLOBENZAPRINE 10 MG TAB PO SCH ×2 (08:25→13:31)
[2017-10-01] MEDS: CETIRIZINE 10 MG TAB PO SCH (08:25)
[2017-10-01] MEDS: CHOLECALCIFEROL VIT D3 2,000 UNITS TAB/CAP PO SCH (08:25)
[2017-10-01] MEDS: ENTACAPONE PO SCH ×2 (08:26→13:31)
[2017-10-01] MEDS: CARBIDOPA PO SCH ×2 (08:26→13:31)
[2017-10-01] MEDS: SENNOSIDES/DOCUSATE SODIUM TAB PO SCH (08:26)
[2017-10-01] MEDS: LEVODOPA PO SCH ×2 (08:26→13:31)
[2017-10-01] MEDS: oxyCODONE IR 5 MG TAB PO PRN ×2 (09:47→14:38)
[2017-10-02] MEDS ORDERED: ENOXAPARIN 40 MG/0.4 ML SYR SC SCH (09:00)
== END 2017-10-01 14:46 | disposition home or self-care (01) | DRG 460 ==
LOC: F3N 08:42
PROVIDERS: ADMIT Neurological Surgery; ATTEND Neurological Surgery
DX: M48.061 Spinal stenosis, lumbar region without neurogenic claudication (principal); M21.372 Foot drop, left foot; M54.17 Radiculopathy, lumbosacral region; M48.07 Spinal stenosis, lumbosacral region; M51.26 Other intervertebral disc displacement, lumbar region; M51.36 Other intervertebral disc degeneration, lumbar region; I48.91 Unspecified atrial fibrillation; G47.33 Obstructive sleep apnea (adult) (pediatric); G20 Parkinson's disease
CPT/HCPCS: 97116-GP; 97162-GP; 97166-GO; 97535-GO; C1713; J0171; J0690; J1100; J2250; J2370; J2405; J2704; J3010

== ENCOUNTER → 2017-11-26 | Outpatient (CLI) | payer OTHER | LOC: FIMAGING 13:39 | PROVIDERS: ATTEND Nurse Practitioner | DX: Z09 Encounter for follow-up examination after completed treatment for conditions other than malignant neoplasm (principal); Z98.1 Arthrodesis status ==

== ENCOUNTER → 2018-03-05 | Outpatient (CLI) | payer OTHER | LOC: FIMAGING 10:20 | PROVIDERS: ATTEND Neurological Surgery | DX: Z09 Encounter for follow-up examination after completed treatment for conditions other than malignant neoplasm (principal); Z98.1 Arthrodesis status ==

== ENCOUNTER → 2018-06-20 | Outpatient (CLI) | payer OTHER | LOC: FIMAGING 11:41 | PROVIDERS: ATTEND Nurse Practitioner | DX: M51.26 Other intervertebral disc displacement, lumbar region (principal); Z98.1 Arthrodesis status; M54.16 Radiculopathy, lumbar region ==

== ENCOUNTER → 2018-10-07 | Outpatient (CLI) | payer OTHER | LOC: FCPNEURO 20:00 | PROVIDERS: ATTEND Student in an Organized Health Care Education/Training Program | DX: G47.33 Obstructive sleep apnea (adult) (pediatric) (principal) ==

== ENCOUNTER → 2018-10-21 | Outpatient (CLI) | payer OTHER | LOC: FIMAGING 12:22 | PROVIDERS: ATTEND Nurse Practitioner | DX: Z98.1 Arthrodesis status (principal) ==

== ENCOUNTER 2018-11-25 09:48 | Inpatient (IN) | payer OTHER ==
[2018-11-25] MEDS ORDERED: ONDANSETRON 4 MG/2 ML VIAL IVP ONE ×2 (09:56→12:30)
--- NOTE | 2018-11-25 10:00 | EDPHY ---
H & P Time Seen by Provider: 11/25/18 09:56 HPI/ROS: HPI: This is a 63-year-old male who presents with Chief Complaint: Right hip injury Location: Right hip Quality: Injury Duration: Prior to arrival Signs and Symptoms: No bleeding, no radiation, no numbness, no weakness, no tingling, no incontinence, + decreased range of motion, no swelling, + pain, no fever Timing: Acute Severity: Moderate Context: Patient has a history of Parkinson's disease, not on any blood thinners secondary to HHT and GI bleed history, presents via EMS with complaints of walking down an embankment, after being on a ladder pain 18 a green house on the property, and losing his balance. He describes as losing his footing and tripping. He reports that when he fell he landed directly on his right hip. He had difficulty getting up on of his own. He reports moderate to severe, constant, lateral right hip pain that worsens with any ranges of motion in his hip. Denies any paresthesias, weakness. Denies LOC/ head injury/neck pain/dizziness/nausea/vomiting/amnesia. Patient's last meal was breakfast at 7:45 a.m. Next Parkinson's medication dose is due at 12 noon. Modifying Factors: EMS placed IV but did not give any medications Comment: ROS: A comprehensive 10 system review of systems is otherwise negative aside from elements mentioned in the history of present illness. MEDICAL/SURGICAL/SOCIAL HISTORY: Medical history: HHT, Parkinson's disease, anemia, GI bleed, resting tremor, Yovula melenoma Surgical history: Partial nephrectomy, left glass eye, young procedure, cholecystectomy Social history: Never smoked, employed, . CONSTITUTIONAL: Extremely polite and cooperative adult white male, awake and alert, no obvious distress HEENT: Atraumatic and normocephalic, right eye: PERRL, EOMI. Wears glasses. Left eye: glass Prosthesis. no globe entrapment, no raccoon eyes. no Chisholm signs.Tympanic membranes clear. No tympanic membrane rupture. Nares patent; no septal hematoma. Oropharynx clear, no exudate and moist pink mucosa. No malocclusion. no dental trauma. Airway patent. No lymphadenopathy. NECK: supple, no midline tenderness, flexion 45 degrees, extension 45 degrees, right and left lateral flexion 45 degrees. No meningismus. Cardiovascular: Normal S1/S2, regular rate, regular rhythm, without murmur rub or gallop. PULMONARY/CHEST: Symmetrical and nontender. no crepitus. Clear to auscultation bilaterally. Good air movement. No accessory muscle usage. ABDOMEN: Soft, nondistended, nontender, no ecchymosis, no rebound, no guarding , no peritoneal signs, no masses or organomegaly. No CVAT. PELVIC: no pain with rocking; bilateral hips flexion 125 degrees, extension 30 degrees, with no pain internal rotation and no pain external rotation. BACK: No midline tenderness, no paraspinous spasm, deep tendon reflexes 2/2, no pain with straight leg raise EXTREMITIES: 2/2 pedal pulses, right hip; right lower leg externally rotated and unable to peanut picker off of the bed. Patient reports pain in the right greater trochanter area with moderate tenderness over the area. Right leg is shorter than the left leg. no clubbing, no cyanosis or edema. NEUROLOGICAL: no focal neuro deficits. GCS 15. Resting tremor. SKIN: Warm and dry, pallor, no erythema. no rash. Good capillary refill. Source: Patient Exam Limitations: No limitations - Personal History Tetanus Vaccine Date: Jun 2015 - Medical/Surgical History Hx Asthma: No Hx Chronic Respiratory Disease: No Hx Diabetes: No Hx Cardiac Disease: No Hx Renal Disease: Yes Hx Cirrhosis: No Hx Alcoholism: No Hx HIV/AIDS: No Hx Splenectomy or Spleen Trauma: No Other PMH: Parkinsons, resting tremor, Partial nephrectomy, left glass eye, HHT , Brandy procedure, cholecystectomy, Yovula melenoma - Social History Smoking Status: Never smoked Constitutional: Initial Vital Signs Temperature (C) 36.5 C 11/25/18 09:57 Heart Rate 64 11/25/18 09:57 Respiratory Rate 16 11/25/18 09:57 Blood Pressure 116/80 11/25/18 09:57 O2 Sat (%) 97 11/25/18 09:57 O2 Delivery Mode Room Air Allergies/Adverse Reactions: No Known Allergies Allergy (Verified 03/10/17 07:43) Home Medications: Medication Instructions Recorded Fexofenadine HCl [Nilda Allergy] 180 mg PO DAILY@72909/04/13 Lisinopril/Hydrochlorothiazide 1 each PO DAILY@72909/04/13 [Lisinopril-Hctz 10-12.5 mg Tab] Multivitamins [Multivitamin (*)] 1 each PO DAILY@72909/04/13 Propafenone HCl Sr [Rythmol Sr 225 mg PO BID@729,222909/04/13 225mg (*)] Cholecalciferol (Vitamin D3) 2,000 unit PO DAILY@72910/09/14 [Vitamin D3] Herbals/Supplements -Info Only 1 ea PO DAILY 10/09/14 [place]-3 Fatty Acids [Fish Oil 1000 1,000 mg PO DAILY@72910/09/14 mg (*)] Carbidopa/Levodopa/Entacapone 1 each PO QID@729,,,222907/31/15 [Stalevo 100 Tablet] Cyclobenzaprine [Flexeril 10 MG 10 mg PO TID@729,,09/17/17 (*)] Ferrous Sulfate [Slow Fe 140 MG] 140 mg PO DAILY@72909/17/17 clonazePAM [Klonopin (*)] 0.5 mg PO DAILY@102909/17/17 rOPINIRole HCL [Requip Xl] 2 mg PO DAILY@222909/17/17 rOPINIRole HCL [Requip Xl] 8 mg PO DAILY@222909/17/17 Acetaminophen [Tylenol ES 500 mg 1,000 mg PO Q8HRS tab 10/01/17 (*)] Gabapentin [Neurontin 300 MG (*)] 300 mg PO Q8HRS #90 cap 10/01/17 Methocarbamol [Robaxin 750 mg (*)] 750 mg PO QID PRN #60 tab 10/01/17 Sennosides/Docusate Sodium 1 - 2 tab PO BID #30 tab 10/01/17 [Senokot-S] oxyCODONE IR [Oxycodone Ir (*)] 5 - 10 mg PO Q4HRS PRN #60 tab 10/01/17 Medical Decision Making - Diagnostics Imaging Results: Imaging Impressions Hip X-Ray 11/25/18 09:56 Impression: 1. Right femoral neck fracture with varus angulation and impaction. 2. Additional findings as above. ED Course/Re-evaluation: Vital signs reviewed and stable upon arrival. IV access obtained by EMS and laboratory studies drawn including type and screen and urinalysis for anticipated surgery Fall was mechanical in nature Given 1 L normal saline, IV morphine 4 mg and IV Zofran 4 mg Right hip x-ray my read at bedside shows a surgical neck fracture-impacted. NPO status. 1014: ED decision to consult Orthopedics. Dr. Zee paged. 1035: Spoke with Dr. Zee who reviewed the images via PACs and will call the OR to get the patient scheduled for surgery today. 1115: Notified by RN that patient is not scheduled for surgery until 5:30 p.m. 1116: Laboratory studies reviewed. No signs of leukocytosis/platelet dysfunction/YANICK/coagulopathy/electrolyte imbalance. WBC 4 K and hemoglobin 13.4 1143: Spoke with Hospitalist regarding admission for complicated medical patient who is requiring right hip surgery this evening. Dr. Caicedo kindly agrees to admit patient and Dr. Zee will consult on patient. Urinalysis and results are pending at time of consult. This patient was seen under the supervision of my secondary supervising physician. I evaluated and cared for this patient independently. Differential Diagnosis: Differential diagnosis includes but is not limited to right hip fracture, right hip contusion, right hip strain. - Data Points Laboratory Results: Laboratory Results 11/25/18 10:36 11/25/18 10:36 11/25/18 11/25/18 11/25/18 10:36 10:36 10:36 WBC 3.65 10^3/uL L 10^3/uL (3.80-9.50) RBC 4.38 10^6/uL L 10^6/uL (4.40-6.38) Hgb 13.4 g/dL L g/dL (13.7-17.5) Hct 41.2 % % (40.0-51.0) MCV 94.1 fL fL (81.5-99.8) MCH 30.6 pg pg (27.9-34.1) MCHC 32.5 g/dL g/dL (32.4-36.7) RDW 13.4 % % (11.5-15.2) Plt Count 249 10^3/uL 10^3/uL (150-400) MPV 11.1 fL fL (8.7-11.7) Neut % (Auto) 60.3 % % (39.3-74.2) Lymph % (Auto) 24.4 % % (15.0-45.0) [place] % (Auto) 12.3 % % (4.5-13.0) Eos % (Auto) 1.6 % % (0.6-7.6) Baso % (Auto) 1.1 % % (0.3-1.7) Nucleat RBC Rel Count 0.0 % % (0.0-0.2) Absolute Neuts (auto) 2.20 10^3/uL 10^3/uL (1.70-6.50) Absolute Lymphs (auto) 0.89 10^3/uL L 10^3/uL (1.00-3.00) Absolute Monos (auto) 0.45 10^3/uL 10^3/uL (0.30-0.80) Absolute Eos (auto) 0.06 10^3/uL 10^3/uL (0.03-0.40) Absolute Basos (auto) 0.04 10^3/uL 10^3/uL (0.02-0.10) Absolute Nucleated RBC 0.00 10^3/uL 10^3/uL (0-0.01) Immature Gran % 0.3 % % (0.0-1.1) Immature Gran # 0.01 10^3/uL 10^3/uL (0.00-0.10) PT 12.7 SEC SEC (12.0-15.0) INR 0.99 (0.83-1.16) APTT 33.8 SEC SEC (23.0-38.0) Sodium 136 mEq/L mEq/L (135-145) Potassium 4.5 mEq/L mEq/L (3.5-5.2) Chloride 99 mEq/L mEq/L (97-110) Carbon Dioxide 26 mEq/l mEq/l (22-31) Anion Gap 11 mEq/L mEq/L (6-14) BUN 20 mg/dL mg/dL (7-23) Creatinine 0.9 mg/dL mg/dL (0.7-1.3) Estimated GFR > 60 Glucose 110 mg/dL H mg/dL (70-100) Calcium 9.1 mg/dL mg/dL (8.5-10.4) Specimen Hemolysis 126 Medications Given: Discontinued Medications Morphine Sulfate (Morphine) 4 mg IVP EDNOW ONE Stop: 11/25/18 09:57 Last Admin: 11/25/18 10:18 Dose: 4 mg Ondansetron HCl (Zofran) 4 mg IVP EDNOW ONE Stop: 11/25/18 09:57 Last Admin: 11/25/18 10:18 Dose: 4 mg Departure - Departure Disposition: [facility] Inpatient Acute Clinical Impression: Parkinson disease, HHT (hereditary hemorrhagic telangiectasia) Closed fracture of right hip requiring operative repair Qualifiers: Encounter type: initial encounter Qualified Code(s): S72.001A - Fracture of unspecified part of neck of right femur, initial encounter for closed fracture Condition: Fair
[2018-11-25 11:10] LABS: INR 0.99 (0.83-1.16); PROTIME(PATIENT) 12.7 SEC (12.0-15.0)
[2018-11-25 11:16] LABS: PLATELET COUNT 249 10^3/uL (150-400)
[2018-11-25] MEDS ORDERED: NS 1,000 ML IV ONE (11:47)
[2018-11-25] MEDS ORDERED: HYDROmorphONE/DILAUDID 1 MG/ML INJ IVP ONE (12:30)
[2018-11-25] MEDS ORDERED: LORazepam 2 MG/ML INJ IVP PRN (14:35)
[2018-11-25] MEDS ORDERED: ONDANSETRON DISINTEGRATING 4 MG TAB PO PRN (14:35)
[2018-11-25] MEDS ORDERED: ONDANSETRON 4 MG/2 ML VIAL IVP PRN ×2 (14:35→18:50)
[2018-11-25] MEDS ORDERED: ACETAMINOPHEN 325 MG TAB PO PRN (14:35)
--- NOTE | 2018-11-25 14:44 | PDGENHP ---
History and Physical - Chief Complaint fall, right hip pain - History of Present Illness 63yo M with Parkinson's, HHT with hepatic AVMs, paroxysmal atrial fibrillation not on anticoagulation, HTN presents after fall with right hip pain. He was painting on his property, came down from ladder, and tripped. Unable to bear weight on RLE due to pain. In ED, x-rays show a right femoral neck fracture. Dr Zee was consulted and is planning on operative management this evening. He currently feels well and his pain is controlled after a dose of morphine. He denies recent chest pain, dyspnea, leg swelling, syncope, bleeding. He reports he has not had any significant bleeding related to his HHT in years. He used to get frequent epistaxis but this has resolved after Young procedure. He recently had an echocardiogram 09/2018 that was grossly normal. History Information - Allergies/Home Medication List Allergies/Adverse Reactions: No Known Allergies Allergy (Verified 03/10/17 07:43) Home Medications: Fexofenadine HCl [Nilda Allergy] 180 mg PO DAILY@72909/04/13 [Last Taken ] Lisinopril/Hydrochlorothiazide [Lisinopril-Hctz 10-12.5 mg Tab] 1 each PO DAILY@ 72909/04/13 [Last Taken 11/25/18] Multivitamins [Multivitamin (*)] 1 each PO DAILY@72909/04/13 [Last Taken 11/25] Propafenone HCl Sr [Rythmol Sr 225mg (*)] 225 mg PO BID@0730,222909/04/13 [ Last Taken 11/25/18] Cholecalciferol (Vitamin D3) [Vitamin D3] 2,000 unit PO DAILY@30 10/09/14 [ Last Taken 11/25/18] Herbals/Supplements -Info Only 1 ea PO DAILY 10/09/14 [Last Taken 09/22/17] [place]-3 Fatty Acids [Fish Oil 1000 mg (*)] 1,000 mg PO DAILY@30 10/09/14 [ Last Taken 11/25/18] Cyclobenzaprine [Flexeril 10 MG (*)] 10 mg PO QID@0730,,,222909/17/17 [ Last Taken 11/25/18 07:30] Ferrous Sulfate [Slow Fe 140 MG] 140 mg PO DAILY@0730 09/17/17 [Last Taken 11/25] ALPRAZolam [Xanax 0.5 MG (*)] 0.5 mg PO DAILY@222911/25/18 [Last Taken 11/24/18 ] Acetaminophen [Tylenol ES 500 mg (*)] 1,000 mg PO TID@07,,222911/25/18 [ Last Taken 11/25/18 07:30] Acetaminophen [Tylenol ES 500 mg (*)] 500 mg PO BID@0430,12 11/25/18 [Last Taken 11/25/18 04:30] Carbidopa/Levodopa [Rytary ER 23.75 mg-95 mg Cap] 3 each PO QID@0730,12,,222911/25/18 [Last Taken 11/25/18 12:00] rOPINIRole HCL [Requip Xl] 12 mg PO DAILY@222911/25/18 [Last Taken 11/24/18] I have personally reviewed and updated: family history, medical history, social history, surgical history - Past Medical History Additional medical history: Parkinson's, HTN, HHT complicated by hepatic AVMs and epistaxis, paroxysmal atrial fibrillation, ocular melanoma, gastric ulcer, DIEUDONNE on CPAP - Surgical History Additional surgical history: left eye enucleation, left nephrectomy, Young procedure (nasal reconstruction) - Family History Additional family history: Mother - HHT with portal hypertension leading to liver failure. Brother - T2DM. Father - brain neoplasm. - Social History Smoking Status: Never smoked Alcohol Use: Rarely Drug Use: None Additional social history: Lives with , who is at bedside. Review of Systems Review of Systems: ROS: 10pt was reviewed & negative except for what was stated in HPI & below Physical Exam Physical Exam: Temp Pulse Resp BP Pulse Ox 36.9 C 65 16 159/115 H 93 11/25/18 13:22 11/25/18 13:22 11/25/18 13:22 11/25/18 13:22 11/25/18 13:22 Constitutional: no apparent distress, appears nourished, not in pain Eyes: other (left prosthetic eye) Ears, Nose, Mouth, Throat: moist mucous membranes, hearing normal, ears appear normal, no oral mucosal ulcers Cardiovascular: regular rate and rhythym, no murmur, rub, or gallop, No edema Respiratory: no respiratory distress, no rales or rhonchi, clear to auscultation Gastrointestinal: normoactive bowel sounds, soft, non-tender abdomen, no palpable masses Genitourinary: no bladder fullness, no bladder tenderness Skin: warm, normal color, no rashes or abrasions, no fluctuance, no induration, No mottled Musculoskeletal: other (right leg shortened and externall rotated) Neurologic: AAOx3 Psychiatric: interacting appropriately Lab Data & Imaging Review 11/25/18 10:36 11/25/18 10:36 WBC 3.65 10^3/uL (3.80-9.50) L 11/25/18 10:36 RBC 4.38 10^6/uL (4.40-6.38) L 11/25/18 10:36 Hgb 13.4 g/dL (13.7-17.5) L 11/25/18 10:36 Hct 41.2 % (40.0-51.0) 11/25/18 10:36 MCV 94.1 fL (81.5-99.8) 11/25/18 10:36 MCH 30.6 pg (27.9-34.1) 11/25/18 10:36 MCHC 32.5 g/dL (32.4-36.7) 11/25/18 10:36 RDW 13.4 % (11.5-15.2) 11/25/18 10:36 Plt Count 249 10^3/uL (150-400) 11/25/18 10:36 MPV 11.1 fL (8.7-11.7) 11/25/18 10:36 Neut % (Auto) 60.3 % (39.3-74.2) 11/25/18 10:36 Lymph % (Auto) 24.4 % (15.0-45.0) 11/25/18 10:36 [place] % (Auto) 12.3 % (4.5-13.0) 11/25/18 10:36 Eos % (Auto) 1.6 % (0.6-7.6) 11/25/18 10:36 Baso % (Auto) 1.1 % (0.3-1.7) 11/25/18 10:36 Nucleat RBC Rel Count 0.0 % (0.0-0.2) 11/25/18 10:36 Absolute Neuts (auto) 2.20 10^3/uL (1.70-6.50) 11/25/18 10:36 Absolute Lymphs (auto) 0.89 10^3/uL (1.00-3.00) L 11/25/18 10:36 Absolute Monos (auto) 0.45 10^3/uL (0.30-0.80) 11/25/18 10:36 Absolute Eos (auto) 0.06 10^3/uL (0.03-0.40) 11/25/18 10:36 Absolute Basos (auto) 0.04 10^3/uL (0.02-0.10) 11/25/18 10:36 Absolute Nucleated RBC 0.00 10^3/uL (0-0.01) 11/25/18 10:36 Immature Gran % 0.3 % (0.0-1.1) 11/25/18 10:36 Immature Gran # 0.01 10^3/uL (0.00-0.10) 11/25/18 10:36 PT 12.7 SEC (12.0-15.0) 11/25/18 10:36 INR 0.99 (0.83-1.16) 11/25/18 10:36 APTT 33.8 SEC (23.0-38.0) 11/25/18 10:36 Sodium 136 mEq/L (135-145) 11/25/18 10:36 Potassium 4.5 mEq/L (3.5-5.2) 11/25/18 10:36 Chloride 99 mEq/L (97-110) 11/25/18 10:36 Carbon Dioxide 26 mEq/l (22-31) 11/25/18 10:36 Anion Gap 11 mEq/L (6-14) 11/25/18 10:36 BUN 20 mg/dL (7-23) 11/25/18 10:36 Creatinine 0.9 mg/dL (0.7-1.3) 11/25/18 10:36 Estimated GFR > 60 11/25/18 10:36 Glucose 110 mg/dL (70-100) H 11/25/18 10:36 Calcium 9.1 mg/dL (8.5-10.4) 11/25/18 10:36 Specimen Hemolysis 126 11/25/18 10:36 Urine Color YELLOW 11/25/18 11:45 Urine Appearance CLEAR 11/25/18 11:45 Urine pH 7.0 (5.0-7.5) 11/25/18 11:45 Ur Specific [place] 1.014 (1.002-1.030) 11/25/18 11:45 Urine Protein NEGATIVE (NEGATIVE) 11/25/18 11:45 Urine Ketones NEGATIVE (NEGATIVE) 11/25/18 11:45 Urine Blood NEGATIVE (NEGATIVE) 11/25/18 11:45 Urine Nitrate NEGATIVE (NEGATIVE) 11/25/18 11:45 Urine Bilirubin NEGATIVE (NEGATIVE) 11/25/18 11:45 Urine Urobilinogen NEGATIVE EU (0.2-1.0) 11/25/18 11:45 Ur Leukocyte Esterase NEGATIVE (NEGATIVE) 11/25/18 11:45 Urine Glucose NEGATIVE (NEGATIVE) 11/25/18 11:45 Patient ABO/Rh O POSITIVE 11/25/18 10:36 Antibody Screen NEGATIVE 11/25/18 10:36 Interpretation: Right hip x-ray: femoral neck fracture with varus angulation and impaction. Assessment & Plan Assessment: 63yo M with Parkinson's, HHT with hepatic AVMs, paroxysmal atrial fibrillation not on anticoagulation, HTN presents after fall with right hip pain. Plan: #Right femoral neck fracture - RCRI score of 0. No contra-indications to surgery from medicine stand point - Dr Zee to take to OR this evening for operative repair - Pain mediations ordered - PT/OT after procedure #HHT: He is currently not anemic. Has h/o hepatic AVMs and epistaxis requiring IV iron infusions. This condition should not increase his operative risk of bleeding. - Continue PO iron #Paroxysmal atrial fibrillation - Check baseline ECG - Continue rhythmol - Not anticoagulated due to above disorder #HTN - Continue home lisinopril/hctz #DIEUDONNE - CPAP at night #Parkinson's - Continue home carbidopa/levodopa (pharmacy aware of non-formulary) and ropinirole #H/o gastric ulcer VTE ppx: SCDs. Recommend pharmacologic ppx as soon as possible as HHT can increase VTE risk slightly. Code: full Diet: NPO until procedure Dispo: Admit under observation
[2018-11-25] MEDS ORDERED: BUPIVACAINE/EPI 0.5% 30 ML SDV ONE (15:26)
[2018-11-25] MEDS ORDERED: BACITRACIN 50,000 UNITS/10 ML SYR IRR ONE (15:27)
[2018-11-25] MEDS ORDERED: POLYMYXIN B SULFATE 500,000 UNIT/10 ML SYR IRR ONE (15:27)
[2018-11-25] MEDS: oxyCODONE IR 5 MG TAB PO PRN (16:25)
[2018-11-25] MEDS: CARBIDOPA PO SCH ×2 (17:06→22:35)
[2018-11-25] MEDS: LEVODOPA PO SCH ×2 (17:06→22:35)
[2018-11-25] MEDS ORDERED: LR 1,000 ML IV ONE (17:29)
[2018-11-25] MEDS ORDERED: PROPOFOL 200 MG/20 ML VIAL ONE (17:55)
[2018-11-25] MEDS ORDERED: ROCURONIUM 50 MG/5 ML VIAL ONE (17:56)
[2018-11-25] MEDS ORDERED: LIDOCAINE 2% 5 ML SDV ONE (17:57)
[2018-11-25] MEDS ORDERED: fentaNYL 100 MCG/2 ML INJ ONE (18:03)
--- NOTE | 2018-11-25 18:04 | PDANEPAE ---
ANE History of Present Illness right hip fracture ANE Past Medical History - Cardiovascular History Hx Hypertension: Yes Hx Arrhythmias: Yes Hx Chest Pain: No Hx Coronary Artery / Peripheral Vascular Disease: No Hx CHF / Valvular Disease: No Hx Palpitations: No Cardiovascular History Comment: ATRIAL FIBRILLATION. HHT - Pulmonary History Hx COPD: No Hx Asthma/Reactive Airway Disease: No Hx Recent Upper Respiratory Infection: Yes Hx Oxygen in Use at Home: No Hx Sleep Apnea: Yes Sleep Apnea Screening Result - Last Documented: Positive Pulmonary History Comment: DIEUDONNE no c-pap. EXERCISE INDUCED ASTHMA - Neurologic History Hx Cerebrovascular Accident: No Hx Seizures: No Hx Dementia: No Neurologic History Comment: PARKINSON DISEASE DX 2012 - Endocrine History Hx Diabetes: No Hypothyroid: No Hyperthyroid: No Obesity: no - Renal History Hx Renal Disorders: Yes Renal History Comment: left Nephrectomy for renal mass - Liver History Hx Hepatic Disorders: No - Neurological & Psychiatric Hx Hx Neurological and Psychiatric Disorders: Yes Neurological / Psychiatric History Comment: ANXIETY RELATED TO PARKINSON - Cancer History Hx Cancer: Yes Cancer History Comment: OCULAR Melanoma - Congenital Disorder History Hx Congenital Disorders: Yes Congenital History Comment: congenital cataract and glaucoma L eye - GI History GERD: no Hx Gastrointestinal Disorders: No Gastrointestinal History Comment: BOWELS SLOW NOT REGULAR - Other Health History Other Health History: ANEMIA due to HHT. nose bleeds - Chronic Pain History Chronic Pain: No - Surgical History Prior Surgeries: L nephrectomy. ENDOSCOPY WITH INJECTION 08/2013. NASAL RECONSTRUCTION YOUNG PROCEDURE 12/2012. LT EYE ENUCLEATION 08/2013. LT CATARACT 1994. LUMA 2008. T&A. NASAL ABLATIONS ANE Review of Systems Review of systems is: negative Review of Systems: - Exercise capacity Exercise capacity: >=4 METS ANE Patient History - Allergies Allergies/Adverse Reactions: No Known Allergies Allergy (Verified 03/10/17 07:43) - Home Medications Home medications: home medication list seen and reviewed Home Medications: Fexofenadine HCl [Nilda Allergy] 180 mg PO DAILY@72909/04/13 [Last Taken ] Lisinopril/Hydrochlorothiazide [Lisinopril-Hctz 10-12.5 mg Tab] 1 each PO DAILY@ 72909/04/13 [Last Taken 11/25/18] Multivitamins [Multivitamin (*)] 1 each PO DAILY@72909/04/13 [Last Taken 11/25] Propafenone HCl Sr [Rythmol Sr 225mg (*)] 225 mg PO BID@729,222909/04/13 [ Last Taken 11/25/18] Cholecalciferol (Vitamin D3) [Vitamin D3] 2,000 unit PO DAILY@72910/09/14 [ Last Taken 11/25/18] Herbals/Supplements -Info Only 1 ea PO DAILY 10/09/14 [Last Taken 09/22/17] [place]-3 Fatty Acids [Fish Oil 1000 mg (*)] 1,000 mg PO DAILY@72910/09/14 [ Last Taken 11/25/18] Cyclobenzaprine [Flexeril 10 MG (*)] 10 mg PO QID@729,,,222909/17/17 [ Last Taken 11/25/18 07:30] Ferrous Sulfate [Slow Fe 140 MG] 140 mg PO DAILY@72909/17/17 [Last Taken 11/25] ALPRAZolam [Xanax 0.5 MG (*)] 0.5 mg PO DAILY@222911/25/18 [Last Taken 11/24/18 ] Acetaminophen [Tylenol ES 500 mg (*)] 1,000 mg PO TID@729,,222911/25/18 [ Last Taken 11/25/18 07:30] Acetaminophen [Tylenol ES 500 mg (*)] 500 mg PO BID@11/25/18 [Last Taken 11/25/18 04:30] Carbidopa/Levodopa [Rytary ER 23.75 mg-95 mg Cap] 3 each PO QID@729,,,222911/25/18 [Last Taken 11/25/18 12:00] rOPINIRole HCL [Requip Xl] 12 mg PO DAILY@222911/25/18 [Last Taken 11/24/18] - NPO status NPO Status: no food or drink >8 hours NPO Since - Liquids (Date): 11/25/18 NPO Since - Liquids (Time): 07:45 NPO Since - Solids (Date): 11/25/18 NPO Since - Solids (Time): 07:45 - Anes Hx Anes Hx: no prior problems - Smoking Hx Smoking Status: Never smoked - Alcohol Use Alcohol Use: Rarely - Family Anes Hx Family Hx Anesthesia Complications: NEG ANE Labs/Vital Signs - Labs Result Diagrams: 11/25/18 10:36 11/25/18 10:36 - Vital Signs Vital Signs: reviewed preoperatively; see RN documention for details Blood Pressure: 113/72 Heart Rate: 70 Respiratory Rate: 14 O2 Sat (%): 93 Height: 187.96 cm Weight: 97.522 kg ANE Physical Exam - Airway Neck exam: FROM Mallampati Score: Class 2 Mouth exam: normal dental/mouth exam - Pulmonary Pulmonary: no respiratory distress - Cardiovascular Cardiovascular: regular rate and rhythym - ASA Status ASA Status: II ANE Anesthesia Plan Anesthesia Plan: general endotracheal anesthesia
[2018-11-25] MEDS ORDERED: ROPI/epiNEPH/KETOROLAC/morphINE JOINT COCKTAIL IU ONE (18:30)
[2018-11-25] MEDS ORDERED: POVIDONE-IODINE 20 ML in SODIUM CL IRRIG SOLUTION 500 ML IRR ONE (18:30)
[2018-11-25] MEDS ORDERED: *IRR*TRANEXAMIC ACID 3,000 MG/NS 50 ML IRR ONE (18:30)
[2018-11-25] MEDS ORDERED: *PREOP 1000MG*TRANEX ACID/NS 100 ML IV ONE (18:30)
[2018-11-25] MEDS ORDERED: PHENYLEPHRINE HCL 100 MCG/ML SYR ONE ×2 (18:44→18:47)
[2018-11-25] MEDS ORDERED: ONDANSETRON 4 MG/2 ML VIAL ONE (18:44)
[2018-11-25] MEDS ORDERED: DEXAMETHASONE 4 MG/ML VIAL ONE (18:44)
[2018-11-25] MEDS ORDERED: PHENYLEPHRINE HCL 100 MCG/ML SYR IVP PRN (18:50)
[2018-11-25] MEDS ORDERED: NS 500 ML IV PRN (18:50)
[2018-11-25] MEDS ORDERED: LR 500 ML IV PRN (18:50)
[2018-11-25] MEDS ORDERED: MEPERIDINE 25 MG/0.5 ML AMP IVP PRN (18:50)
[2018-11-25] MEDS ORDERED: oxyCODONE IR 5 MG TAB PO PRN (18:50)
[2018-11-25] MEDS ORDERED: HYDROmorphONE/DILAUDID 1 MG/ML INJ IVP PRN (18:50)
[2018-11-25] MEDS ORDERED: NALOXONE HCL 0.4 MG/ML INJ IVP PRN (18:50)
[2018-11-25] MEDS ORDERED: fentaNYL 100 MCG/2 ML INJ IVP PRN (18:50)
[2018-11-25] MEDS ORDERED: SUGAMMADEX SODIUM 200 MG/2 ML VIAL IVP ONE (19:44)
[2018-11-25] MEDS ORDERED: LACTULOSE 20 GM/30 ML UDCUP PO PRN (20:13)
[2018-11-25] MEDS ORDERED: PROMETHAZINE HCL 25 MG/ML INJ IVP PRN (20:13)
[2018-11-25] MEDS ORDERED: TEMAZEPAM 15 MG CAP PO PRN (20:13)
[2018-11-25] MEDS ORDERED: POLYETHYLENE GLYCOL 3350 17 GM PKT PO PRN (20:13)
[2018-11-25] MEDS ORDERED: diphenhydrAMINE 25 MG CAP PO PRN (20:13)
[2018-11-25] MEDS ORDERED: DIPHENOXYLATE/ATROPINE LOMOTIL 1 TAB PO PRN (20:13)
[2018-11-25] MEDS ORDERED: BISACODYL 10 MG SUPP PR PRN (20:13)
[2018-11-25] MEDS ORDERED: TAPENTADOL HCL 50 MG TAB PO PRN (20:13)
[2018-11-25] MEDS ORDERED: PROMETHAZINE HCL 25 MG SUPPR PR PRN (20:13)
[2018-11-25] MEDS ORDERED: MAGNESIUM HYDROXIDE 30 ML UDCUP PO PRN (20:13)
--- NOTE | 2018-11-25 20:13 | POSTOPPROG ---
Post Op Note Date of Operation: 11/25/18 Surgeon: Geri Zee Anesthesia: GET(General Endotracheal) Pre-op Diagnosis: r hip fx Procedure: r hip michelle-arthroplasty with fluoro Inf/Abcess present in the surg proc area at time of surgery?: No Depth: Deep Incisional (Fascial) EBL: 100-500
[2018-11-25] MEDS ORDERED: LR 1,000 ML IV SCH (20:30)
[2018-11-25] MEDS: ACETAMINOPHEN 500 MG TAB PO SCH ×2 (21:03→22:29)
[2018-11-25] MEDS: CYCLOBENZAPRINE 10 MG TAB PO SCH ×2 (21:04→22:32)
[2018-11-25] MEDS: ceFAZolin 2 GM/DEXTROSE 100 ML IV SCH (22:24)
[2018-11-25] MEDS: PROPAFENONE HCL SR 225 MG CAP PO SCH (22:31)
[2018-11-25] MEDS: SENNOSIDES/DOCUSATE SODIUM TAB PO SCH (22:31)
[2018-11-25] MEDS: ALPRAZolam 0.5 MG TAB PO SCH (22:32)
[2018-11-25] MEDS: FAMOTIDINE 20 MG TAB PO SCH (22:32)
[2018-11-25] MEDS: ROPINIROLE HCL 12 MG PO SCH (22:32)
[2018-11-26] MEDS: traMADol 50 MG TAB PO SCH ×4 (00:06→18:38)
--- NOTE | 2018-11-26 03:08 | GOP ---
[f rep st] OPERATIVE REPORT DATE OF OPERATION: 11/25/2018 SURGEON: Geri Zee MD ANESTHESIA: By endotracheal intubation. PREOPERATIVE DIAGNOSIS: Right hip femoral neck fracture. POSTOPERATIVE DIAGNOSIS: Right hip femoral neck fracture. PROCEDURE PERFORMED: Right hip hemiarthroplasty with fluoroscopy. FINDINGS: INDICATIONS: This is a 63-year-old male, who fell at home earlier today. Was brought to the emergen cy room, diagnosed with femoral neck fracture. He was brought to the operating room as soon as time was available. DESCRIPTION OF PROCEDURE: Patient was brought to the operating room after the right side had been id entified as the correct side by the patient, nurse, and physician. Once in the operating room, he wa s placed under general anesthesia using endotracheal intubation. Once asleep, he was placed on a tra ction table with well-padded peroneal post and both legs placed in appropriate leg guevara. Fluorosco py was used to ensure proper positioning of the pelvis. Once in proper position, the arch table was locked into place, and the right hip and flank were sterilely prepped and draped in the usual fashion using GSI solution. Once prepped and draped, a linear incision was made starting 2 cm lateral and i nferior to the ASIS and heading in a 15-degree posterior direction with sharp dissection carried down through the skin and subcutaneous layers with bleeding controlled using electrocautery. The fascia overlying the TFL was incised in line with its fibers with the muscle belly retracted laterally. Arcelia per blunt dissection was carried down to the fascial sheath, and the circumflex vessels at the base o f the fascial sheath were cauterized. Deeper dissection was carried down onto the femoral neck itsel f. Blunt Cobra retractor was placed in superior and inferior portion of the femoral neck, and the an terior capsule was removed in its entirety. Oscillating saw was used to cut across the inferior port ion of the femoral neck just above the intertrochanteric line. The leg was externally rotated to 40 degrees, and a corkscrew was used to remove the femoral head. The femoral head was measured to be 56 mm in diameter. Multiple trials were placed in the acetabulum. Noted a 56 trial seemed to fit best . The leg was externally rotated to 90 degrees at that time. Capsular dissection was done of the an terior and superior portion of the femoral neck. Once an adequate capsular release had been performe d, the leg was placed in extension and adduction. Curette and rongeur were used to remove medullary bone as well as superior portion of the femoral neck in order to gain access into the medullary canal . Sequential broaches were used up to a size 8, which was noted to fit securely. Trial reduction wa s performed. Noted a +0 head gave good length as well as good stability through the hip. Therefore, the hip was redislocated, placed in extension and adduction, and a size 8 accolade 227-degree neck s tem was put into place and noted to fit securely with the trunnion washed and dried and a 26 +0 femor al head put in place and a 56 x 26 bipolar component from Mela put into place and noted to fit sec urely. The leg was re-reduced and put into place. Joint cocktail was injected into the posterior ca psule and the muscle of the iliopsoas, the TFL, and the periosteum of the femur and acetabulum. The wound was thoroughly irrigated with a Betadine solution. Was then irrigated with tranexamic acid. T he wound was then closed in layers to include 0 Vicryl suture in a running whip stitch for the fascia l layer overlying the TFL, 0 Vicryl and 2-0 Vicryl sutures for subcutaneous layers, and a 3-0 V-Loc s uture in a running subcuticular stitch for the skin. The wound was then dressed with Steri-Strips, X eroform, 4 x 4, and Tegaderm. The patient was completely undraped in the operating room. Both legs were taken out of the appropriate leg guevara. Peroneal post was removed. Leg lengths were noted to be equal. He was woken up, extubated, transferred onto a bed, and sent to recovery room in good cond ition. /[id number]/MODL
--- NOTE | 2018-11-26 03:29 | GCON ---
[f rep st] CONSULTATION INPATIENT CONSULT REPORT DATE OF CONSULTATION: 11/25/2018 CURRENT COMPLAINT: Right hip pain. HISTORY OF PRESENT ILLNESS: The patient is a 63-year-old male, who fell today at home. Was brought to the emergency room via ambulance. Had pain to log roll. Was diagnosed with a femoral neck fractu re. I was asked to see the patient for further evaluation. PHYSICAL EXAMINATION: The patient's had pain to log roll. Was neurovascularly intact int o the foot. X-ray exam revealed a femoral neck fracture with displacement. ASSESSMENT AND PLAN: The patient is status post right hip femoral neck fracture. Options were discu ssed with the patient and family to include continued conservative measures versus operative treatmen t. They prefer operative treatment, which I strongly suggest. He will, therefore, be brought to the operating room when surgical time is available. /[id number]/MODL
[2018-11-26] MEDS: ceFAZolin 2 GM/DEXTROSE 100 ML IV SCH (05:04)
[2018-11-26] MEDS: ACETAMINOPHEN 500 MG TAB PO SCH ×5 (05:07→22:41)
[2018-11-26] MEDS: oxyCODONE IR 5 MG TAB PO PRN (08:18)
[2018-11-26] MEDS: SENNOSIDES/DOCUSATE SODIUM TAB PO SCH ×2 (08:21→20:20)
[2018-11-26] MEDS: FAMOTIDINE 20 MG TAB PO SCH ×2 (08:21→20:14)
[2018-11-26] MEDS: CYCLOBENZAPRINE 10 MG TAB PO SCH ×4 (08:22→22:40)
[2018-11-26] MEDS: LISINOPRIL/HCTZ 10/12.5 MG 1 EA TAB PO SCH (08:22)
[2018-11-26] MEDS: PROPAFENONE HCL SR 225 MG CAP PO SCH ×2 (08:22→22:40)
[2018-11-26] MEDS: LEVODOPA PO SCH ×4 (08:23→22:43)
[2018-11-26] MEDS: CARBIDOPA PO SCH ×4 (08:23→22:43)
[2018-11-26] MEDS: RIVAROXABAN 10 MG TAB PO SCH (08:25)
[2018-11-26] MEDS: FERRO-SEQUELS 65 MG TAB.ER PO SCH (08:28)
--- NOTE | 2018-11-26 09:41 | ASMTCMCOM ---
CM Note CM Note Notes: Pt's chart reviewed by CM for d/c planning. Pt is a 63 y/o man with a diagnosis of Parkinson's, who presented at the ED following a fall and hip pain.Pt was diagnosed with a right hip fracture and last night underwent right hip hemiarthroplasty. Pt is employed by [employer]; he is , is Angelique [phone]. Pt is recommending home care. referral will be made to [facility] pending approval from pt. D/C Plan: Anticipate home PT. Date Signed: 11/26/2018 09:40 AM Electronically Signed By:Wendi Chapman
--- NOTE | 2018-11-26 10:35 | HOSPPROG ---
Hospitalist Progress Note Assessment/Plan: 63yo M with Parkinson's, HHT, paroxysmal atrial fibrillation not on anticoagulation, HTN presents after fall found to have R femoral fracture. #Right femoral neck fracture - S/p hemiarthroplasty w/Dr Zee 11/25 - Pain control - PT/OT #Anemia: Post-op (minimal EBL) and dilutional - Monitor #HHT: H/o hepatic AVMs and epistaxis requiring IV iron infusions. This condition should not increase his operative risk of bleeding. - Continue PO iron #Paroxysmal atrial fibrillation: sinus here - Continue rhythmol - Not anticoagulated due to above disorder #HTN - Continue home lisinopril/hctz #DIEUDONNE - CPAP at night #Parkinson's - Continue home carbidopa/levodopa (pharmacy aware of non-formulary) and ropinirole #H/o gastric ulcer VTE ppx: SCDs. Recommend pharmacologic ppx as soon as cleared by surgery as HHT can increase VTE risk slightly Code: full Diet: Regular Dispo: Pending pain control and therapy service recommendations Subjective: Underwent R hip hemiarthroplasty yesterday evening. Doing very well this morning. Minimal pain. Got up with PT. Objective: Vital Signs Temp Pulse Resp BP Pulse Ox 36.7 C 71 16 104/68 90 L 11/26/18 08:00 11/26/18 08:00 11/26/18 08:00 11/26/18 08:22 11/26/18 08:00 Laboratory Results 11/26/18 04:10 11/25/18 11/26/18 11/27/18 05:59 05:59 05:59 Intake Total 2760 500 Output Total 1455 200 Balance 1305 300 PT 12.7 SEC (12.0-15.0) 11/25/18 10:36 INR 0.99 (0.83-1.16) 11/25/18 10:36 - Physical Exam Constitutional: no apparent distress, appears nourished, not in pain Eyes: PERRL, anicteric sclera, EOMI, other (left prosthetic eye) Ears, Nose, Mouth, Throat: moist mucous membranes, hearing normal, ears appear normal, no oral mucosal ulcers Cardiovascular: regular rate and rhythym, no murmur, rub, or gallop, No edema Respiratory: no respiratory distress, no rales or rhonchi, clear to auscultation Gastrointestinal: normoactive bowel sounds, soft, non-tender abdomen, no palpable masses Genitourinary: no bladder fullness, no bladder tenderness, no renal bruits Skin: no rashes or abrasions, no fluctuance, no induration Musculoskeletal: full muscle strength, no muscle tenderness, normal joint ROM Neurologic: AAOx3, sensation intact bilaterally Psychiatric: interacting appropriately, not anxious, not encephalopathic, thought process linear ICD10 Worksheet Patient Problems: Problems Problem Status Onset Closed fracture of right hip requiring operative repair Acute HHT (hereditary hemorrhagic telangiectasia) Acute Parkinson disease Acute Anemia Acute Arthrodesis status Acute GI bleed Acute Lumbar radicular pain Acute Lumbar stenosis Acute Renal cyst, acquired, left Acute Renal mass Acute Renal oncocytoma of left kidney Acute
--- NOTE | 2018-11-26 12:13 | PDMN ---
Medical Necessity Medical necessity: Pt meets inpt criteria per MD order and [facility] S-600, Hip: Displaced Fracture of Femoral Neck, Hemiarthroplasty, 3 days. 63 y/o presented w /R hip pain and inability to bear weight on RLE after fall, xray shows R femoral neck fx w/varus angulation and proximal displacement of the femur, taken to OR for R hip michelle-arthroplasty. PMHx includes Parkinson's, HHT w/ hepatic AVMs, paroxysmal afib and HTN. Est LOS>2MN for ongoing management of above.
--- NOTE | 2018-11-26 13:26 | SOAPPROG ---
SOAP Progress Note Assessment/Plan: Assessment: Plan: Subjective: states he's been comfortable but hasn't done stairs yet dressing intact with fot NVI plan for DC tomorrow Objective: Vital Signs Temp Pulse Resp BP Pulse Ox 36.6 C 71 16 97/58 L 96 11/26/18 11:23 11/26/18 11:23 11/26/18 11:23 11/26/18 11:23 11/26/18 11:23 Laboratory Results 11/26/18 04:10 11/25/18 11/26/18 11/27/18 05:59 05:59 05:59 Intake Total 2760 500 Output Total 1455 200 Balance 1305 300 PT 12.7 SEC (12.0-15.0) 11/25/18 10:36 INR 0.99 (0.83-1.16) 11/25/18 10:36 ICD10 Worksheet Patient Problems: Problems Problem Status Onset Closed fracture of right hip requiring operative repair Acute HHT (hereditary hemorrhagic telangiectasia) Acute Parkinson disease Acute Anemia Acute Arthrodesis status Acute GI bleed Acute Lumbar radicular pain Acute Lumbar stenosis Acute Renal cyst, acquired, left Acute Renal mass Acute Renal oncocytoma of left kidney Acute
--- NOTE | 2018-11-26 15:23 | CPEKG ---
Test Reason : OPEN Blood Pressure : / mmHG Vent. Rate : 067 BPM Atrial Rate : 067 BPM P-R Int : 161 ms QRS Dur : 137 ms QT Int : 427 ms P-R-T Axes : 079 -25 063 degrees QTc Int : 451 ms Sinus rhythm Right bundle branch block Confirmed by Debbie Odom ([id number]) on 11/26/2018 3:22:19 PM Referred By: Sha Caicedo Confirmed By:Debbie Odom
[2018-11-26] MEDS: ALPRAZolam 0.5 MG TAB PO SCH (22:40)
[2018-11-26] MEDS: ROPINIROLE HCL 12 MG PO SCH (22:42)
[2018-11-27] MEDS: traMADol 50 MG TAB PO SCH ×3 (00:12→13:09)
[2018-11-27] MEDS: ACETAMINOPHEN 500 MG TAB PO SCH ×3 (05:16→13:09)
[2018-11-27] MEDS: CARBIDOPA PO SCH ×2 (07:50→13:08)
[2018-11-27] MEDS: LEVODOPA PO SCH ×2 (07:50→13:08)
[2018-11-27] MEDS: oxyCODONE IR 5 MG TAB PO PRN (07:51)
[2018-11-27] MEDS: FERRO-SEQUELS 65 MG TAB.ER PO SCH (07:51)
[2018-11-27] MEDS: PROPAFENONE HCL SR 225 MG CAP PO SCH (07:52)
[2018-11-27] MEDS: SENNOSIDES/DOCUSATE SODIUM TAB PO SCH (07:52)
[2018-11-27] MEDS: LISINOPRIL/HCTZ 10/12.5 MG 1 EA TAB PO SCH (07:53)
[2018-11-27] MEDS: FAMOTIDINE 20 MG TAB PO SCH (07:53)
[2018-11-27] MEDS: CYCLOBENZAPRINE 10 MG TAB PO SCH ×2 (07:53→13:09)
[2018-11-27] MEDS: RIVAROXABAN 10 MG TAB PO SCH ×2 (09:00→13:11)
[2018-11-27 11:16] VITALS: BP 94/61
--- NOTE | 2018-11-27 13:11 | PDDCSUM ---
Discharge Summary Discharge Summary: Date of Admission: 11/25/2018 Date of Discharge: 11/27/2018 Consultants: orthopedic surgery (Geri Zee) Procedures: right hip hemiarthroplasty Discharge Diagnoses: 1. Right femoral neck fracture 2. Anemia 3. HHT 4. Paroxysmal atrial fibrillation 5. HTN 6. DIEUDONNE on CPAP 7. Parkinson's 8. H/o gastric ulcer Brief Hospital Course: 63yo M with Parkinson's, HHT (manifested as recurrent hepatic AVMs, epistaxis), paroxysmal atrial fibrillation not on anticoagulation, and HTN presented after a mechanical fall found to have R femoral fracture. Orthopedics was consulted and performed right hip hemiarthroplasty. There were no post-operative complications. His hemoglobin did drop slightly which was likely due to the procedure and dilutional. He was started on xarelto for 2 weeks for DVT prophylaxis. He is at a higher risk of GI bleeding and epistaxis with his HHT however we felt that risk of DVT outweighed any risk of bleeding. PT and OT evaluated the patient and he is set up with home health care with these therapies. He remained in sinus rhythm throughout his stay. He was tolerating PO and pain was controlled prior to discharge. Medications: Please refer to EMR for complete list. I wrote a prescription for xarelto 20mg daily x2 weeks. Otherwise no medication changes. Follow Up Plan: Dr Zee in 10-14 days. Physical Exam: Vitals reviewed, normal HR and BP. Alert and oriented, prosthetic L eye, mild tremor, rrr, lungs clear, abdomen soft, no leg edema.
--- NOTE | 2018-11-27 13:40 | SOAPPROG ---
SOAP Progress Note Assessment/Plan: Assessment: Plan: Subjective: states he's heading home dressing intact with foot NVI OOB to chair DC to home FU in office in 10-14 days Objective: Vital Signs Temp Pulse Resp BP Pulse Ox 36.8 C 78 18 94/61 L 94 11/27/18 11:15 11/27/18 11:15 11/27/18 11:15 11/27/18 11:15 11/27/18 11:15 Laboratory Results 11/27/18 04:16 11/26/18 11/27/18 11/28/18 05:59 05:59 05:59 Intake Total 2760 2650 Output Total 1455 1450 300 Balance 1305 1200 -300 PT 12.7 SEC (12.0-15.0) 11/25/18 10:36 INR 0.99 (0.83-1.16) 11/25/18 10:36 ICD10 Worksheet Patient Problems: Problems Problem Status Onset Closed fracture of right hip requiring operative repair Acute HHT (hereditary hemorrhagic telangiectasia) Acute Parkinson disease Acute Anemia Acute Arthrodesis status Acute GI bleed Acute Lumbar radicular pain Acute Lumbar stenosis Acute Renal cyst, acquired, left Acute Renal mass Acute Renal oncocytoma of left kidney Acute
--- NOTE | 2018-11-27 14:19 | PDIAF ---
- Diagnosis Code Status: Full Code - Medication Management Discharge Medications: electronically signed and located in the Home Medication List. - Orders Services needed: Physical Therapy, Occupational Therapy Isolation Type: None Diet Recommendation: no restrictions on diet Additional Instructions: I have prescribed 13 more days of xarelto. This is a blood thinner to prevent blood clots in the post-operative period. If you develop bleeding (nose or gastrointestinal), please seek medical attention. Otherwise, no medication changes. We are setting you up with home health physical and occupational therapies. They will plan to start on Wednesday, 11/29. You are weight bearing as tolerated with your right leg. Please make post op appointment with Dr. Zee. - Follow Up Care Current Providers and Referrals: Richelle Fish MD [Primary Care Provider] - Geri Zee MD [Medical Doctor] -
== END 2018-11-27 14:35 | disposition home health service (06) | DRG 470 ==
LOC: EDUNIT# → F3N 13:14
PROVIDERS: ADMIT Internal Medicine; ATTEND Internal Medicine
PROC: 0SRR0JA Replacement of Right Hip Joint, Femoral Surface with Synthetic Substitute, Uncemented, Open Approach (ICD-10-PCS; principal; 2018-11-25 17:00)
DX: S72.011A Unspecified intracapsular fracture of right femur, initial encounter for closed fracture (principal); W11.XXXA Fall on and from ladder, initial encounter; Y93.H9 Activity, other involving exterior property and land maintenance, building and construction; Y92.017 Garden or yard in single-family (private) house as the place of occurrence of the external cause; Y99.8 Other external cause status; D62 Acute posthemorrhagic anemia; I78.0 Hereditary hemorrhagic telangiectasia; G20 Parkinson's disease; I48.0 Paroxysmal atrial fibrillation; I10 Essential (primary) hypertension; G47.33 Obstructive sleep apnea (adult) (pediatric); Z85.820 Personal history of malignant melanoma of skin; Z90.01 Acquired absence of eye; Z97.0 Presence of artificial eye; Z90.5 Acquired absence of kidney
CPT/HCPCS: 96374; 97116-GP; 97161-GP; 97166-GO; 97530-GP; 97535-GO; J0171; J0690; J1100; J1170; J1885; J2270; J2370; J2405; J2704; J2795; J3010